=== PATIENT | female | born 1990 | race Two or more races ===

== ENCOUNTER → 2020-08-14 | Emergency (ER) | payer OTHER | END | disposition left against medical advice (07) | LOC: ER 19:49 | DX: Z53.20 Procedure and treatment not carried out because of patient's decision for unspecified reasons (principal) ==

== ENCOUNTER 2023-09-04 18:00 | Inpatient (IN) | payer OTHER ==
[~2023-09-04] VITALS: Ht 160 cm; Wt 68.0 kg
[2023-09-04 19:16] LABS: HEMATOCRIT 36.5 % (36.0-45.00); HEMOGLOBIN 12.3 g/dL (12.0-15.00); MEAN CELL VOLUME 94.1 fL (80.00-100.00); MEAN CORPUSCULAR HEMOGLOBIN 31.8 pg (27.00-32.0); MEAN CORPUSCULAR HGB CONC 33.8 g/dl (32.0-36.0); PLATELET COUNT 167 K/uL (150-450); RED BLOOD COUNT 3.88 M/uL (4.00-6.00); RED CELL DISTRIBUTION WIDTH 13.8 % (11.5-14.5)
[2023-09-04 19:17] LABS: PH,URINE 6.5 (5.0-8.0); URINE APPEARANCE Clear; URINE BILIRRUBIN Negative (NEGATIVE); URINE BLOOD Negative; URINE COLOR Yellow; URINE GLUCOSE Negative (NEGATIVE); URINE LEUKOCYTE Trace; URINE NITRATE Negative; URINE PROTEIN Negative (NEGATIVE)
[2023-09-04 19:18] LABS: URINE EPITHELIAL CELLS 19.6 uL (0.0-38.8); URINE RBC 12.6 uL (0.0-20.8); URINE WBC 48.3 uL (0.0-23.2)
[2023-09-04 19:36] LABS: INR 0.94; PARTIAL THROMBOPLASTIN TIME 27.3 SECONDS (22.0-34.0); PROTHROMBIN TIME 9.9 SECONDS (9.0-11.5)
[2023-09-04 19:41] LABS: URINE MUCUS MODERATE
[2023-09-04 19:42] LABS: URINE CRYSTALS FEW /HPF
[2023-09-05 23:08] LABS: HEMATOCRIT 36.8 % (36.0-45.00); HEMOGLOBIN 12.5 g/dL (12.0-15.00); MEAN CELL VOLUME 94.7 fL (80.00-100.00); MEAN CORPUSCULAR HEMOGLOBIN 32.1 pg (27.00-32.0); MEAN CORPUSCULAR HGB CONC 33.9 g/dl (32.0-36.0); RED CELL DISTRIBUTION WIDTH 14.2 % (11.5-14.5)
[2023-09-05 23:13] LABS: PLATELET COUNT 152 K/uL (150-450); RED BLOOD COUNT 3.89 M/uL (4.00-6.00)
[2023-09-08] MEDS ORDERED: IBUPROFEN800 MG PO (08:20)
== END 2023-09-08 14:07 | disposition home or self-care (01) | DRG 788 ==
LOC: LDR 18:00 → OB/GYN 09-05 19:44
PROVIDERS: ADMIT Obstetrics & Gynecology; ATTEND Obstetrics & Gynecology
PROC: 4A1HXCZ Monitoring of Products of Conception, Cardiac Rate, External Approach (ICD-10-PCS; 2023-09-04)
PROC: 10D00Z1 Extraction of Products of Conception, Low, Open Approach (ICD-10-PCS; principal; 2023-09-05 16:00)
DX: O82 Encounter for cesarean delivery without indication (principal); Z3A.39 39 weeks gestation of pregnancy; Z37.0 Single live birth; Z20.822 Contact with and (suspected) exposure to COVID-19

== ENCOUNTER 2025-08-09 18:11 | Emergency (ER) | payer OTHER ==
[~2025-08-09] VITALS: Ht 160 cm; Wt 59.0 kg
[~2025-08-09 18:11] MED LIST: IBUPROFEN800 MG PO
[2025-08-09] MEDS ORDERED: GUAIFENESIN/DEXTROMETHORPHAN 100MG/10ML BLIST.PACK PO ONE ×2 (21:00→21:38)
[2025-08-09] MEDS ORDERED: CETIRIZINE HCL 5 MG/5 ML ML PO ONE (21:00)
[2025-08-09] MEDS ORDERED: ACETAMINOPHEN 500 MG GEL..CAP PO ONE ×2 (21:00→21:37)
[2025-08-09] MEDS ORDERED: IPRATROPIUM/ALBUTEROL SULFATE 3 ML AMPUL.NEB IH ONE ×2 (21:00→22:14)
[2025-08-09] MEDS ORDERED: CETIRIZINE HCL 5MG/5ML BLIST.PACK PO ONE (21:38)
[2025-08-09 21:56] LABS: BASO % 0.5 % (0.1-1.2); EOS # 0.09 (0.04-0.54); EOS % 1.1 % (0.7-7.0); LYMPH # 1.47 (1.18-3.74); LYMPH % 18.7 % (19.3-53.1); MEAN PLATELET VOLUME 13.00 fl (9.4-12.4); MONO # 0.65 (0.24-0.82); MONO % 8.3 % (4.7-12.5); NEUT # 5.60 (1.56-6.13); NEUT % 71.3 % (34.0-71.1); RED CELL DISTRIBUTION WIDTH 12.2 % (11.6-14.4)
[2025-08-09 22:43] LABS: COVID-19 AG NEGATIVE (NEGATIVE)
[2025-08-09] MEDS ORDERED: ALBUTEROL1.25 MG/3 IH (23:24)
[2025-08-09] MEDS ORDERED: TUSSIN DM LIQU118 ML PO (23:24)
[2025-08-09] MEDS ORDERED: IPRATROPIU0.2 MG/1 M IH (23:24)
[2025-08-09] MEDS ORDERED: ZITHROMAX500 MG PO (23:24)
[2025-08-09] MEDS ORDERED: VENTOLIN HFA18 GM IH (23:24)
[2025-08-09] MEDS ORDERED: ZYRTEC10 MG PO (23:24)
== END 2025-08-10 01:04 | disposition home or self-care (01) ==
LOC: ER 18:12
PROVIDERS: General Practice
DX: J06.9 Acute upper respiratory infection, unspecified (principal); R50.9 Fever, unspecified; R05.9 Cough, unspecified; Z20.822 Contact with and (suspected) exposure to COVID-19